=== PATIENT | male | born 1985 | race American Indian/Alaskan Native ===

== ENCOUNTER 2023-10-04 16:09 | Emergency (ER) | payer OTHER ==
[~2023-10-04] VITALS: Ht 188 cm; Wt 112.3 kg
[2023-10-04 18:15] LABS: BASOPHILS 1.1 % (0-2); EOSINOPHILS 0.3 % (0-6); HEMATOCRIT 44.6 % (35.0-50.0); HEMOGLOBIN 15.9 g/dL (12.0-18.0); LYMPHOCYTES 17.6 % (24-44); MCH 31.2 (27-36); MCHC 35.7 g/dl (30-36); MCV 87.2 fl (81-99); MONOCYTES 8.8 % (0-12); NEUTROPHILS 72.2 % (39-80); PLATELET COUNT 247 K/uL (140-440); RBC 5.12 M/ul (4.3-5.7); RDW 13.6 (10.5-15.0)
[2023-10-04 18:26] LABS: ALBUMIN 4.1 g/dL (3.4-5.0); ALBUMIN/GLOBULIN RATIO 1.17 (1.1-2.4); BILIRUBIN, TOTAL 0.8 ng/dL (0.2-1.0); BUN/CREATININE RATIO 8.13 (6.0-28.6); CALCIUM 9.2 mg/dL (8.5-10.1); CREATININE, SERUM 0.86 mg/dL (0.70-1.30); PROTEIN, TOTAL 7.6 g/dL (6.4-8.2)
[2023-10-04 20:00] VITALS: BP 128/84
--- NOTE | 2023-10-04 22:54 | EKG ---
[facility] [address] [place], [place] [address] Signed Normal sinus rhythm with sinus arrhythmia Right bundle branch block Abnormal ECG No previous ECGs available Confirmed by Lizzie Abrams MD () on 10/04/2023 10:54:09 PM Electronically Signed By: LIZZIE ABRAMS MD 10/04/23 2254 PATIENT NAME: YESICA BARBER Electrocardiogram DATE OF : 81 PHYSICIAN: LIZZIE ABRAMS MD REPORT #: [id number] REPORT IS CONFIDENTIAL AND NOT TO BE RELEASED WITHOUT AUTHORIZATION
== END 2023-10-04 20:01 | disposition home or self-care (01) ==
LOC: ED 16:09
PROVIDERS: Emergency Medicine
DX: R07.89 Other chest pain (principal); R20.2 Paresthesia of skin
CPT/HCPCS: 36415; 80053; 84484; 85025; 93005; 93010; 99285-25

== ENCOUNTER 2024-11-06 07:25 | Emergency (ER) | payer OTHER ==
[~2024-11-06] VITALS: Ht 188 cm; Wt 124.2 kg
[2024-11-06] MEDS ORDERED: IBUPROFEN 600 MG TAB PO ONE (08:15)
[2024-11-06] MEDS ORDERED: HYDROCODON-ACE1 EA10 PO (08:55)
[2024-11-06 09:00] VITALS: BP 139/91
== END 2024-11-06 09:00 | disposition home or self-care (01) ==
LOC: ED 07:25
DX: M25.512 Pain in left shoulder (principal)
CPT/HCPCS: 73030; 99283; A9270